=== PATIENT | female | born 1975 | race Caucasian/White ===

== ENCOUNTER 2020-02-12 17:51 | Outpatient (REF) | payer MEDICAID, SELFPAY ==
[2020-02-12 20:48] LABS: Calculated LDL 165 mg/dL (<100); Cholesterol 265 mg/dL (<200); Glucose 101 mg/dL (74-106); HDL Cholesterol 44 mg/dL (40-60); TSH 1.15 uIU/mL (0.36-3.74); Triglyceride 283 mg/dL (<150)
== END 2020-02-12 18:11 ==
LOC: NCHCN 17:51
PROVIDERS: PCP Internal Medicine; Visit Provider Internal Medicine
DX: E66.3 Overweight (principal); M54.12 Radiculopathy, cervical region; Z13.1 Encounter for screening for diabetes mellitus; Z83.3 Family history of diabetes mellitus
CPT/HCPCS: 80061; 82947; 84443